=== PATIENT | female | born 1960 | race Caucasian/White ===

== ENCOUNTER 2017-07-25 05:20 | Day surgery (SDC) | payer OTHER ==
[~2017-07-25 05:20] MED LIST: ACIDO FOLICO; ADULT ASPIRIN81 MG PO; CLONOPIN; FOSAMAX70 MG PO; LORATADINE10 MG PO; METFORMIN HCL500 MG PO; METROPOL; NITRO-BID1 G1 TD; PAXIL20 MG PO; PEPCID20 MG PO; PRILOSEC10 MG PO; RESTORIL30 M1 PO; SIMVASTATIN; SULINDAC200 MG; SYNTHROID125 MCG PO; VENTOLIN HFA18 GM IH; [UNRECOGNIZED DRUG - OTHER]; [UNRECOGNIZED DRUG - OTHER]
== END 2017-07-25 11:15 | disposition home or self-care (01) ==
LOC: CIR.AMB 05:20
DX: D07.1 Carcinoma in situ of vulva (principal)